=== PATIENT | female | born 1995 | race Caucasian/White ===

== ENCOUNTER → 2016-10-17 | Outpatient (CLI) | payer OTHER ==
[~2016-10-17] MED LIST: IBUPROFEN600 MG PO
== END ==
LOC: NM 13:00
DX: R07.9 Chest pain, unspecified (principal); R94.31 Abnormal electrocardiogram [ECG] [EKG]; R06.02 Shortness of breath; R94.30 Abnormal result of cardiovascular function study, unspecified; I36.1 Nonrheumatic tricuspid (valve) insufficiency; I34.8 Other nonrheumatic mitral valve disorders; R42 Dizziness and giddiness
CPT/HCPCS: 78452; 93017; A9502; J2785

== ENCOUNTER → 2020-08-15 | Outpatient (CLI) | payer OTHER | LOC: HEART 5 08-08 14:00 | DX: R00.2 Palpitations (principal); R00.0 Tachycardia, unspecified ==

== ENCOUNTER → 2020-10-25 | Outpatient (CLI) | payer OTHER | LOC: US 10-18 10:30 | DX: R10.11 Right upper quadrant pain (principal) | CPT/HCPCS: 76705 ==

== ENCOUNTER → 2020-12-03 | Outpatient (CLI) | payer OTHER ==
[2020-12-03 16:35] LABS: HEMOGLOBIN 13.8 gm/dl (12.3-15.3); RED BLOOD COUNT 4.51 M/UL (4.00-5.10); WHITE BLOOD COUNT 7.6 K/UL (4.5-11.0)
[2020-12-03 16:56] LABS: BUN/CREATININE RATIO 17 (0-10)
== END ==
LOC: LAB 15:48
PROVIDERS: Nurse Practitioner Family
DX: R21 Rash and other nonspecific skin eruption (principal); I20.9 Angina pectoris, unspecified; I10 Essential (primary) hypertension; I47.2 Ventricular tachycardia; R00.2 Palpitations; R06.02 Shortness of breath
CPT/HCPCS: 36415; 80053; 80061; 83735; 84439; 84443; 84481; 85025; 85652; 86038; 86140; 86431

== ENCOUNTER → 2020-12-18 | Outpatient (CLI) | payer OTHER | LOC: MRI 14:03 | DX: K83.8 Other specified diseases of biliary tract (principal) | CPT/HCPCS: 74181 ==

== ENCOUNTER → 2020-12-26 | Outpatient (CLI) | payer OTHER | LOC: NM 08:22 | DX: K83.8 Other specified diseases of biliary tract (principal) | CPT/HCPCS: 78227; A9537; J2805 ==

== ENCOUNTER → 2021-02-12 | Outpatient (CLI) | payer OTHER | LOC: ECHO 02-06 10:45 | DX: R06.02 Shortness of breath (principal); I47.2 Ventricular tachycardia | CPT/HCPCS: ECHO; 93306 ==